=== PATIENT | male | born 1980 | race Caucasian/White ===

== ENCOUNTER 2017-05-31 20:36 | Emergency (ER) | payer SELFPAY ==
[~2017-05-31] VITALS: Ht 170.2 cm; Wt 120.0 kg
[2017-05-31 20:46] VITALS: TEMP 36.7; O2SAT 98; Ht 170.2 cm; Wt 120.0 kg
[2017-05-31 20:51] VITALS: O2SAT 95
[2017-05-31] MEDS ORDERED: HIGH BLOOD PRES (21:12)
[2017-05-31] MEDS ORDERED: ANXIETY MED (21:12)
[2017-05-31 22:30] VITALS: BP 137/79; PULSE 86
[2017-06-01] MEDS ORDERED: NICOTINE POLACRILEX 2 MG GUM MT PRN
--- NOTE | 2017-06-01 00:24 | EMERGENCY ROOM VISIT NOTE ---
History Report prepared by Massielibcarol: Kiara Fiore Under the Supervision of: Dr. Chang Caro D.O. First contact with patient: 21:05 Chief Complaint: ALCOHOL OVERDOSE Stated Complaint: CONFUSION Nursing Triage Summary: [place]. pt was observed by psp staggering around so pt was sent here. pt uncooperative or ems but cooperative upon arrival to ed. History of Present Illness The patient is a 36 year old male who presents to the Emergency Room with complaints of constant alcohol intoxication beginning [employer]. The patient states that he was drinking today and he was staggering before he fell in front of police officers and was brought into the emergency debarment. He reports that he doesn't know what happened and is concerned because he is on probation. The patient complains of a fall. He denies any injury. Source of History: patient Onset: [employer] Position: other (global) Quality: other (alcohol intoxication) Timing: constant Note: pt complains of fall. denies any injury. Review of Systems See HPI for pertinent positives & negatives. A total of 10 systems reviewed and were otherwise negative. Past Medical & Surgical Medical Problems: (1) No Known Active Medical Problems Social History Smoking Status: Current Some Day Smoker Marital Status: single Occupation Status: employed Current/Historical Medications Miscellaneous Medications [Anxiety Med] [High Blood Pres] Allergies Coded Allergies: No Known Allergies (Unverified , 05/31/17) Physical Exam Vital Signs Date Time Temp Pulse Resp B/P (MAP) Pulse Ox O2 Delivery O2 Flow Rate FiO2 05/31/17 22:30 86 14 137/79 Room Air 05/31/17 21:09 94 05/31/17 20:51 95 Room Air 05/31/17 20:46 36.7 98 18 113/70 98 Room Air Physical Exam CONSTITUTIONAL/VITAL SIGNS: Reviewed / noted above. GENERAL: Non-toxic in appearance. INTEGUMENTARY: Warm, dry, and Orin. HEAD: Normocephalic. EYES: without scleral icterus or trauma. ENT/OROPHARYNX: clear and moist. LYMPHADENOPATHY/NECK: Is supple without lymphadenopathy or meningismus. RESPIRATORY: Lungs clear and equal. CARDIOVASCULAR: Regular rate and rhythm. GI/ABDOMEN: Soft and nontender. No organomegaly or pulsatile mass. No rebound or guarding. Normal bowel sounds. EXTREMITIES: Warm and well perfused. BACK: No CVA tenderness. NEUROLOGICAL: Intact without focal deficits. PSYCHIATRIC: normal affect. MUSCULOSKELETAL: Normally developed with good muscle tone. Medical Decision & Procedures Medications Administered Medications (Trade) Dose Ordered Sig/Antonio Route Start Time Stop Time Status Last Admin Dose Admin Nicotine Polacrilex (Nicorette 2MG Gum) 2 piece PRN PRN MT 06/01/17 00:00 07/01/17 00:00 06/01/17 00:30 2 PIECE ED Course 2104: Previous medical records were reviewed. The patient was evaluated in room A12B. A complete history and physical examination was performed. 0000: Nicotine Polacrilex 2 piece PRN. 0023: On reevaluation, the patient is doing well. I discussed the results and findings with the patient. He verbalized agreement of the treatment plan. The patient was discharged home. Medical Decision There is no evidence of other toxic ingestions, trauma, anemia, hypoglycemia, head injury or intracranial pathology, meningitis, encephalitis, acute intrathoracic or abdominal pathology or other metabolic condition. The patient is a 36-year-old male who was seen in the emergency department for evaluation after staggering at the football game. He did admit to drinking some alcohol today. The patient on his arrival and my evaluation is awake, alert and oriented. He denies any specific complaints. His phone is that he is unable to contact his friends. He came here from [place] with his friends. Because there and again, he is unable to contact them. The patient was given his phone back after was discharged. He was able to contact his friends. They are supposed to pick him up. He is felt to be stable for discharge. He does not have his vehicle here. Medication Reconcilliation Current Medication List: was personally reviewed by me Blood Pressure Screening Patient's blood pressure: Normal blood pressure Blood pressure disposition: Did not require urgent referral Impression Primary Impression: Staggering gait Additional Impression: Alcohol ingestion Scribe Attestation The scribe's documentation has been prepared under my direction and personally reviewed by me in its entirety. I confirm that the note above accurately reflects all work, treatment, procedures, and medical decision making performed by me. Departure Information Dispostion Home / Self-Care Patient Instructions My [facility] Additional Instructions Follow-up with your doctor for further care and evaluation in 1-2 days. Return to the emergency department for worsening or new symptoms or any concerns. You have been examined and treated today on an emergency basis only. This is not a substitute for, or an effort to provide, complete comprehensive medical care. It is impossible to recognize and treat all injuries or illnesses in a single emergency department visit. It is therefore important that you follow up closely with your doctor. Call as soon as possible for an appointment. Problem Qualifiers
== END 2017-06-01 00:47 | disposition home or self-care (01) ==
LOC: EDBD 20:36 → C.EDA 20:39
DX: F10.129 Alcohol abuse with intoxication, unspecified (principal); R26.0 Ataxic gait; F17.200 Nicotine dependence, unspecified, uncomplicated